=== PATIENT | female | born 1970 | race American Indian/Alaskan Native ===

== ENCOUNTER 2017-02-14 09:38 | Outpatient (CLI) | payer OTHER ==
--- NOTE | 2017-02-14 11:42 | Fluoroscopy Report ---
MODIFIED BARIUM SWALLOW History: dysphagia. Findings: Video radiography was provided by the radiologist for speech therapy to assess the swallowing mechanism. Please refer to the formal report by speech therapy. Impression: Successful modified barium swallow.
== END 2017-02-14 09:39 | disposition home or self-care (01) ==
LOC: PT 09:38
PROVIDERS: ATTEND Otolaryngology
DX: R13.12 Dysphagia, oropharyngeal phase (principal)
CPT/HCPCS: 74230

== ENCOUNTER 2017-03-07 16:50 | Outpatient (CLI) | payer OTHER ==
--- NOTE | 2017-03-07 19:25 | Cat Scan Report ---
FINAL REPORT PROCEDURE: CT NECK WO/W CON TECHNIQUE: Computerized axial tomography of the soft tissue neck was performed before and after the IV injection of iodinated nonionic contrast. HISTORY: SHORTNESS OF BREATH COMPARISON: No prior studies are available for comparison. FINDINGS: The parotid glands, the submandibular glands, the prevertebral soft tissues, the epiglottis, the larynx and the thyroid gland are unremarkable. Nonspecific subcentimeter lymph nodes are scattered throughout the right and left side of the neck. These do not appear to be pathologically enlarged. The tonsils do not appear to be significantly enlarged. Parapharyngeal spaces are symmetric and show no abnormalities. Visualized portions of the paranasal sinuses appear clear. The mastoid air cells appear clear. No facial fractures are identified. There is moderate degenerative disc disease C5-C6 level with moderate disc space narrowing, mild diffuse disc bulge and anterior and posterior osteophytic spurring. The disc osteophyte complex at this level obscures the anterior epidural space without definite cord compression or spinal stenosis. No radiopaque foreign bodies are identified. IMPRESSION: No acute abnormalities are identified. Please see above comments. Moderate degenerative disc disease C5-C6 level as described.
== END 2017-03-07 16:51 | disposition home or self-care (01) ==
LOC: CT 16:50
PROVIDERS: ATTEND Family Medicine
DX: M50.322 Other cervical disc degeneration at C5-C6 level (principal); R06.02 Shortness of breath; R07.0 Pain in throat; R13.10 Dysphagia, unspecified
CPT/HCPCS: 70492; Q9967